=== PATIENT | female | born 1960 | race Caucasian/White ===

== ENCOUNTER 2018-10-13 11:18 | Emergency (ER) | payer MEDICAID, SELFPAY ==
--- NOTE | 2018-10-13 11:26 | NUR.NOTE ---
1125: went to get patient. not in waiting area.
[2018-10-13 11:28] VITALS: BP 144/86; PULSE 91; RESP 14; TEMP 37.1; O2SAT 97
--- NOTE | 2018-10-13 12:01 | ED.GENADUL_ITS ---
Discharge Plan Disposition Patient Disposition: HOME Discharge Details Chief Complaint: FacialProb Clinical Impression: Acute facial pain Primary Care Provider: Dafne Vidal ED Provider: José Weiss Home Meds and New Rx's Prescriptions: Continued losartan 50 mg Tablet 1 tab PO QAM RF: 0 Discharge Instructions Additional Instructions: Keep affected area warm and protected from cold environment. Please take ibuprofen over the counter - dose according to label. Please take Tylenol over the counter - dose according to label. Please contact your primary care physician to arrange follow-up. Return to the ER for any worsening or new concerning symptoms. Referrals: Dafne Vidal [Primary Care Provider] - Discharge Data Discharge Date/Time-TO BE ENTERED AT DEPARTURE: 10/13/18 12:19 Medical Decision Making 58yo f here with pain and swelling right nasal bridge. She has mild tenderness on exam with no significant erythema or swelling. Patient notes swelling has dramatically improved from yesterday. Consider frostbite versus less likely infectious or allergic process. Given symptoms are improving I do not think antibiotics are indicated at this time. Patient is a chronic smoker. I did advise that should symptoms worsen she will need additional diagnostic testing. I encouraged to return should she have any worsening or new concerning symptoms and advised that she follow-up with her primary care physician and be sure to discuss this as scheduled later next week. HPI General Date/Time Provider Initiated Documentation: 10/13/18 11:42 . Related Data Home Medications Medication Instructions Recorded Confirmed losartan 1 tab PO QAM 10/13/18 10/13/18 Allergies Allergy/AdvReac Type Severity Reaction Status Date / Time erythromycin base AdvReac Intermediate swelling Unverified 10/13/18 11:34 hands and feet Penicillins AdvReac Intermediate swelling Unverified 10/13/18 11:34 in hands and feet General Stated Complaint: FacialProb JORGE: 3 PFSH Social History Smoking/Tobacco Use Status: Current every day Exam Const General: cooperative and no acute distress HENNE Head: normocephalic and atraumatic General nose exam: external nose normal and nares normal Face and sinus: sinuses nontender and other (mild swelling bridge of nose and right paranasal with no erythema ) Mouth: oral mucosae normal and moist mucous membranes Throat: posterior oropharynx normal Eyes Conjunctivae: normal conjunctivae Sclera: normal sclerae EOM: EOM intact bilaterally Skin General skin exam: no rashes or lesions noted Other: no erythema or blister on face Neuro General: alert and awake Course Vital Signs Temperature 37.1 C 10/13/18 11:28 Pulse 91 H 10/13/18 11:28 Respiratory Rate 14 10/13/18 11:28 Blood Pressure 144/86 H 10/13/18 11:28 Pulse Oximetry 97 10/13/18 11:28 Temperature 37.1 C 10/13/18 11:28 Temperature Source Skin 10/13/18 11:28 Pulse 91 H 10/13/18 11:28 Respiratory Rate 14 10/13/18 11:28 Respiratory Effort 10/13/18 11:35 Blood Pressure 144/86 H 10/13/18 11:28 Blood Pressure Position Sitting 10/13/18 11:28 Pulse Oximetry 97 10/13/18 11:28 Oxygen Delivery Method Room Air 10/13/18 11:28 Oxygen Flow Rate 0 10/13/18 11:28 Pain Level 4 10/13/18 11:28 Comment 10/13/18 11:28
== END 2018-10-13 12:19 | disposition home or self-care (01) ==
PROVIDERS: Emergency Provider Student in an Organized Health Care Education/Training Program; PCP Nurse Practitioner Family
DX: R51 Headache (principal); R22.0 Localized swelling, mass and lump, head
CPT/HCPCS: 99282

== ENCOUNTER 2018-10-30 01:02 | Outpatient (CLI) | payer MEDICAID, SELFPAY ==
--- NOTE | 2018-10-30 08:10 | DI.MAMMO_ITS ---
SYMPTOM/DIAGNOSIS: SCREENING, Z12.39 MAMMOGRAMS: Mammograms were interpreted according to the usual protocol including computer analysis with CAD system, tomosynthesis and C view imaging. The patient states previous exam in [place] which was not able to be located. The breasts are composed of heterogeneously dense fibroglandular tissue, breast density, Category C. No suspicious masses or suspicious microcalcifications are seen. IMPRESSION: Category 1, negative mammogram. Yearly screening mammography is recommended. If the patient's previous exams become available, an addendum will be issued. [facility] ASSESSMENT OF FINDINGS: Negative. Category 1. Patient will receive a letter notifying them of these results. Bi-RADS category C. The breasts are heterogeneously dense, which may obscure small masses.
[2018-10-30 12:51] LABS: Anion Gap 7.4 mmol/L (3-11); BUN 12 mg/dL (7-18); CO2 30.6 mmol/L (21.0-32.0); CREATININE 0.65 mg/dL (0.55-1.02); Calcium 9.3 mg/dL (8.5-10.1); Chloride 105 mmol/L (98-107); Cholesterol 221 mg/dL (50-200); Glucose 103 mg/dL (70-100); HDL Cholesterol 57 mg/dL (40-60); LDL CHOLESTEROL 136 mg/dL (<100); Potassium 4.1 mmol/L (3.5-5.1); Sodium 143 mmol/L (136-145); Triglyceride 125 mg/dL (30-150)
== END 2018-10-30 01:22 ==
PROVIDERS: PCP Nurse Practitioner Family; Visit Provider Nurse Practitioner Family
DX: Z12.31 Encounter for screening mammogram for malignant neoplasm of breast (principal); I10 Essential (primary) hypertension; Z00.00 Encounter for general adult medical examination without abnormal findings
CPT/HCPCS: 77063; 77067; 80048; 80061; 83721

== ENCOUNTER 2018-11-13 10:54 | Outpatient (REF) | payer MEDICAID, SELFPAY ==
--- NOTE | 2018-11-13 09:45 | PAPFT_PTH ---
PATIENT: Lina Coffey LOC: [facility] U#:[id number] AGE/SX: 58/F ROOM: RE11/13/[address]: Dafne Vidal : 1960 BED: DIS: 11/13/2018 SPEC #: [id number] RECD: 11/13/18 12:42 STATUS: MORENA RENancy #: [id number] GIOVANNY: 11/13/18 09:[address]: Dafne Vidal DEPT: [facility] Cytology RECD BY: Janiya Diallo Tissues: 1 - CX/ENDOCX FOR PAP SMEARS Procedures: PAP THIN PREP/UVM Screening HPV DNA PROBE Comments: [id number]
== END 2018-11-13 11:14 ==
LOC: NCHCN 10:54
PROVIDERS: PCP Nurse Practitioner Family; Visit Provider Nurse Practitioner Family
DX: Z12.4 Encounter for screening for malignant neoplasm of cervix (principal); Z11.51 Encounter for screening for human papillomavirus (HPV); Z00.00 Encounter for general adult medical examination without abnormal findings
CPT/HCPCS: 88142; 87624

== ENCOUNTER 2019-05-08 07:43 | Emergency (ER) | payer MEDICAID, SELFPAY ==
[2019-05-08 07:50] VITALS: BP 157/92; PULSE 93; RESP 16; TEMP 36.6; O2SAT 98
--- NOTE | 2019-05-08 08:07 | ED.GENADUL_ITS ---
Discharge Plan Disposition Patient Disposition: HOME Condition: Stable Discharge Details Chief Complaint: DentalOral Clinical Impression: Pain, dental, Ear pain, right Primary Care Provider: Dafne Vidal ED Provider: Benita Sheppard Home Meds and New Rx's Prescriptions: New clindamycin HCl 150 mg capsule 450 mg PO TID 7 Days Qty: 63 RF: 0 Continued losartan 50 mg Tablet 1 tab PO QAM RF: 0 Discharge Instructions Instructions: Earache (ED), Toothache (ED) Additional Instructions: Take the antibiotics until finished. Alternate Tylenol and Motrin as needed and directed for pain. Take your Percocet that you have at home as needed and directed for pain not relieved with Tylenol or motrin. Call your dentist today to schedule a follow-up appointment for reevaluation. Return to the emergency department if you develop any worsening or new concerning symptoms. Discharge Data Discharge Date/Time-TO BE ENTERED AT DEPARTURE: 05/08/19 08:35 Discharge Physician: Benita Sheppard Medical Decision Making 59-year-old female who presents to the ED with complaint of right lower dental pain, right ear pain and sore throat for the past month. She appears nontoxic. Afebrile. Right lower tooth tender to palpation without evidence of abscess. Throat normal to inspection. No drooling, trismus, or evidence of peritonsillar abscess. Patient is allergic to penicillin. Will treat with clindamycin. Patient advised to call her dentist tomorrow morning to schedule a follow-up appointment for reevaluation and to return to the ER anytime if worse. HPI General Mode of arrival: ambulatory . Date/Time Provider Initiated Documentation: 05/08/19 07:59 . Limitations to Documentation: no limitations . Information obtained by: patient . HPI Narrative: Patient is a 59-year-old female who presents with right lower dental pain, ear pain and right-sided sore throat for the past month, worse since last night. She states she has a hole near a feeling in her right lower tooth. She states she took 2 Percocet that she had leftover from a previous prescription overnight without relief. She denies any fever, difficulty swallowing, difficulty breathing, headache or neck pain. She denies any recent antibiotics. Related Data Home Medications Medication Instructions Recorded Confirmed losartan 1 tab PO QAM 10/13/18 10/13/18 clindamycin HCl 450 mg PO TID 7 Days #63 cap 05/08/19 Previous Rx's Medication Instructions Recorded clindamycin HCl 450 mg PO TID 7 Days #63 cap 05/08/19 Allergies Allergy/AdvReac Type Severity Reaction Status Date / Time erythromycin base AdvReac Intermediate swelling Unverified 10/13/18 11:34 hands and feet Penicillins AdvReac Intermediate swelling Unverified 10/13/18 11:34 in hands and feet General Stated Complaint: DentalOral JORGE: 4 Review of Systems Review of Systems All systems reviewed & are unremarkable except as noted in HPI and below Constitutional Reports as per HPI, Denies chills and Denies fever(s) Eyes Denies blurry vision ENT Reports dental pain, Denies dizziness, Reports otalgia, Reports sore throat and Denies throat swelling Cardiovascular Denies chest pain and Denies dyspnea Respiratory Denies cough and Denies dyspnea Gastrointestinal Denies abdominal pain, Denies diarrhea and Denies vomiting Genitourinary Denies hematuria and Denies dysuria Musculoskeletal Denies back pain and Denies numbness Integumentary/Breasts Denies lesions and Denies rash Neurologic Denies dizziness, Denies focal weakness and Denies numbness Allergic/Immunologic Denies throat swelling [facility] Medical History HTN (hypertension) (Chronic) Surgical History History of knee replacement (Chronic) Social History Smoking/Tobacco Use Status: Current every day Tobacco Type: cigarettes Smoking cigarettes per day: 10 Alcohol Intake: never Substance use type: does not use Do you feel safe in your relationship?: Yes Exam Const General: cooperative, healthy appearing and no acute distress HENCT Head: normal to inspection Ears: hearing grossly normal bilaterally, external ears normal and TM abnormal erythematous on the right General nose exam: external nose normal and nares normal Face and sinus: normal facial exam Mouth: oral mucosae normal Teeth image: 1. Tenderness to palpation R lower tooth w/ filling present. Hole noted to buccal side of tooth. Minimal surrounding erythema but no evidence of edema, fluctuance, induration or abscess. Throat: posterior oropharynx normal Eyes General: appearance normal, both eyes and all related structures Neck Neck: normal visual inspection, no lymphadenopathy, no meningeal signs, trachea midline and supple Resp Effort & Inspection: normal respiratory effort and able to speak in complete sentences Cardio Rate: regular rate Skin General skin exam: no rashes or lesions noted Neuro General: alert, awake and oriented x3 Motor: muscle tone normal throughout Extrem General: normal to inspection and full ROM Psych Appearance: grossly normal Affect: normal affect Course Vital Signs Temperature 97.9 F 05/08/19 07:50 Pulse 93 H 05/08/19 07:50 Respiratory Rate 16 05/08/19 07:50 Blood Pressure 157/92 H 05/08/19 07:50 Pulse Oximetry 98 05/08/19 07:50 Temperature 97.9 F 05/08/19 07:50 Temperature Source Skin 05/08/19 07:50 Pulse 93 H 05/08/19 07:50 Respiratory Rate 16 05/08/19 07:50 Respiratory Effort Non-Labored 05/08/19 07:53 Blood Pressure 157/92 H 05/08/19 07:50 Pulse Oximetry 98 05/08/19 07:50 Oxygen Delivery Method Room Air 05/08/19 07:50 Oxygen Flow Rate 0 05/08/19 07:50
== END 2019-05-08 08:35 | disposition home or self-care (01) ==
LOC: ER 08:43
PROVIDERS: Emergency Provider Physician Assistant; PCP Nurse Practitioner Family
DX: H92.01 Otalgia, right ear (principal); K08.89 Other specified disorders of teeth and supporting structures; J02.9 Acute pharyngitis, unspecified; I10 Essential (primary) hypertension
CPT/HCPCS: 99283

== ENCOUNTER 2019-05-26 08:58 | Emergency (ER) | payer MEDICAID, SELFPAY ==
--- NOTE | 2019-05-26 09:03 | W.ED.GENAD ---
Discharge Plan Disposition Patient Disposition: HOME Discharge Details Chief Complaint: EarProblem Clinical Impression: Eustachian tube dysfunction Primary Care Provider: Dafne Vidal ED Provider: Asif Billy Home Meds and New Rx's Prescriptions: Continued losartan 50 mg Tablet 1 tab PO QAM RF: 0 Discharge Instructions Additional Instructions: You were seen in the emergency department today for evaluation of ear pain. You should follow-up with your primary care doctor. Call tomorrow to schedule an appointment. Return to the emergency department immediately if you develop any fevers, weakness, difficulty breathing, or for any other concerning or worsening symptoms at all. Referrals: Dafne Vidal [Primary Care Provider] - Medical Decision Making 59-year-old female presents with right ear pain. There is no evidence of otitis media, otitis externa, mastoiditis. This is possibly due to eustachian tube dysfunction due to allergies. Patient will take ibuprofen and Tylenol. She will follow-up with her primary care provider. She was given return precautions, discharge instructions and agrees to the outpatient treatment plan. HPI My ear hurts. This patient is a 59-year-old female who presents with right ear pain. It is a sharp pain. Is been present for about 1 day. Nothing has really made it better or worse. She denies any fevers. She does have allergies. She takes allergy medication daily. About 1 week ago she was put on clindamycin for dental pain and right ear pain. She states that the tooth is no longer hurting. Symptoms do not radiate. Symptoms have been constant. She denies any other recent illness. General Date/Time Provider Initiated Documentation: 05/26/19 09:03. Related Data Home Medications Medication Instructions Recorded Confirmed losartan 1 tab PO QAM 10/13/18 05/26/19 Allergies Allergy/AdvReac Type Severity Reaction Status Date / Time erythromycin base AdvReac Intermediate swelling Unverified 05/26/19 09:07 hands and feet Penicillins AdvReac Intermediate swelling Unverified 05/26/19 09:07 in hands and feet General JORGE: 4 Review of Systems Review of Systems No fevers, chest pain, cough, vomiting. [facility] Medical History HTN (hypertension) (Chronic) Surgical History History of knee replacement (Chronic) Social History Smoking/Tobacco Use Status: Current every day Tobacco Type: cigarettes Alcohol Intake: never Substance use type: does not use Do you feel safe in your relationship?: Yes Exam Narrative Exam Narrative: Gen: no acute distress, alert. Eyes: Pupils equal, reactive to light, EOMs intact. ENT: nose and ears normal, posterior pharynx without injection or swelling. TMs are clear without erythema or injection or fluid. no ear swelling or evidence of mastoid tenderness. Neck: normal ROM. Lung: Clear to auscultation bilaterally, no respiratory distress. Card: RRR, normal S1, S2, no M/R/G. Psych: alert and oriented to person, place time, normal affect. Skin: warm, intact.
[2019-05-26 09:06] VITALS: BP 167/86; PULSE 96; RESP 16; TEMP 36.5; O2SAT 100
== END 2019-05-26 09:42 | disposition home or self-care (01) ==
PROVIDERS: Emergency Provider Emergency Medicine; PCP Nurse Practitioner Family
DX: H69.91 Unspecified Eustachian tube disorder, right ear (principal); I10 Essential (primary) hypertension
CPT/HCPCS: 99282

== ENCOUNTER 2019-09-14 09:19 | Emergency (ER) | payer MEDICAID, SELFPAY ==
[2019-09-14 09:25] VITALS: BP 185/105; PULSE 100; RESP 18; TEMP 36.6; O2SAT 98
[2019-09-14] MEDS: Ibuprofen 600 MG TAB PO (09:44)
[2019-09-14] MEDS: Acetaminophen 325 MG TAB 650 MG PO (09:45)
--- NOTE | 2019-09-14 09:54 | DI.RAD_ITS ---
EXAM: XR FOREARM RT and XR right elbow INDICATION: fall, pain. COMPARISON: No previous for comparison. TECHNIQUE: 2D digital imaging was performed. FINDINGS: There is a mildly impacted fracture of the radial neck. No other fracture or dislocation is seen in the right elbow and forearm. There is a joint effusion present. IMPRESSION: Mildly impacted right radial neck fracture.
--- NOTE | 2019-09-14 10:15 | DI.VRAD_ITS ---
Addendum created by Can Hector MD on 09/14/2019 10:20:26 AM EST THIS REPORT CONTAINS FINDINGS THAT MAY BE CRITICAL TO PATIENT CARE. The findings were verbally communicated via telephone conference with BRIAN MIRANDA at 10:20 AM EST on 09/14/2019. The findings were acknowledged and understood. Addendum created by Can Hector MD on 09/14/2019 10:16:50 AM EST Correction: There is impacted minimally displaced radial head fracture better seen on the elbow images Initial report created on 09/14/2019 10:15:04 AM EST PROCEDURE INFORMATION: Exam: XR Right Forearm Exam date and time: 09/14/2019 9:40 AM Age: 59 years old Clinical indication: Pain; Elbow; Right TECHNIQUE: Imaging protocol: XR Right forearm. Views: 2 views. COMPARISON: No relevant prior studies available. FINDINGS: Bones/joints: Degenerative changes in the humeral ulnar joint. There is no evidence of acute fracture.There is no evidence of malalignment or dislocation. Soft tissues: Normal. IMPRESSION: There is no evidence of acute fracture.There is no evidence of malalignment or dislocation. Dictated and Authenticated by: Can Hector MD. Ordering:PAUL Kumar MD
--- NOTE | 2019-09-14 10:17 | DI.VRAD_ITS ---
Addendum created by Can Hector MD on 09/14/2019 10:20:10 AM EST THIS REPORT CONTAINS FINDINGS THAT MAY BE CRITICAL TO PATIENT CARE. The findings were verbally communicated via telephone conference with BRIAN MIRANDA at 10:20 AM EST on 09/14/2019. The findings were acknowledged and understood. Initial report created on 09/14/2019 10:17:10 AM EST PROCEDURE INFORMATION: Exam: XR Right Elbow Exam date and time: 09/14/2019 10:03 AM Age: 59 years old Clinical indication: Injury or trauma; Fall; Initial encounter; Blunt trauma (contusions or hematomas; Elbow; Right; Additional info: Best oblique images possible, done supine for patient comfort. Patient intolerant to positioning TECHNIQUE: Imaging protocol: XR Right elbow. Views: 3 or more views. COMPARISON: No relevant prior studies available. FINDINGS: Bones/joints: Minimally displaced Impacted radial head fracture. Degenerative changes in the humeral ulnar joint Osteophyte formation in the medial condyle Soft tissues: Soft tissue swelling of the elbow IMPRESSION: Minimally displaced Impacted radial head fracture. Dictated and Authenticated by: Can Hector MD. Ordering:PAUL Kumar MD
--- NOTE | 2019-09-14 10:28 | W.ED.GENAD ---
Discharge Plan Disposition Patient Disposition: HOME Discharge Details Chief Complaint: Orthopedic Clinical Impression: Closed fracture of head of right radius Primary Care Provider: Dafne Vidal ED Provider: José Weiss Home Meds and New Rx's Prescriptions: New ibuprofen 600 mg tablet 600 mg PO TID Qty: 60 RF: 0 Continued losartan 50 mg Tablet 1 tab PO QAM RF: 0 Discharge Instructions Instructions: Arm Fracture in Adults (ED) Additional Instructions: Please use sling. Please take ibuprofen as prescribed. Please take acetaminophen (tylenol) - 650mg every 6 hours by mouth as needed for pain. Please follow-up with orthopedics. Call on Monday to schedule an appointment. Return to the ER for any new concerning or worsening symptoms. Your blood pressure was elevated today. Be sure to follow-up with your primary care physician and have this rechecked. You may need to have your antihypertensive medication dosing adjusted. Referrals: [facility] [Provider Group] Sundeep Tao MD [ [facility] STAFF PHYSICIAN] - Discharge Data Discharge Date/Time-TO BE ENTERED AT DEPARTURE: 09/14/19 10:44 Medical Decision Making 59-year-old female tripped and fell and landed on right elbow, here with elbow pain and tenderness, unable to fully extend her elbow. Neurovascular intact distally. X-ray of the elbow was reviewed and interpreted by radiology: Minimally displaced impacted radial head fracture. I called and spoke with Dr. Tao who recommends sling versus splint. He will see the patient in follow-up 1 week. Usual and customary discharge instructions were provided. HPI General Date/Time Provider Initiated Documentation: 09/14/19 09:32. Related Data Home Medications Medication Instructions Recorded Confirmed losartan 1 tab PO QAM 10/13/18 09/14/19 ibuprofen 600 mg PO TID #60 tab 09/14/19 Previous Rx's Medication Instructions Recorded ibuprofen 600 mg PO TID #60 tab 09/14/19 Allergies Allergy/AdvReac Type Severity Reaction Status Date / Time erythromycin base AdvReac Intermediate swelling Unverified 09/14/19 09:27 hands and feet Penicillins AdvReac Intermediate swelling Unverified 09/14/19 09:27 in hands and feet General Stated Complaint: Orthopedic JORGE: 4 PFSH Social History Smoking/Tobacco Use Status: Current every day Tobacco Type: cigarettes Alcohol Intake: never Substance use type: does not use Do you feel safe at home: Yes Do you feel safe in your relationship?: Yes Exam Const General: cooperative and no acute distress [facility] Head: normocephalic and atraumatic Neck Neck: full ROM and supple Resp Auscultation: clear to auscultation bilaterally, no rales, no rhonchi and no wheezes Cardio Jugular venous pressure: no JVD Rate: regular rate and not tachycardic Rhythm: regular rhythm GI Palpation: soft, not firm, no guarding, no masses, not rigid and nontender Back/Spine/Pelvis Cervical Spine: cervical ROM normal and No cervical spinal tenderness Skin General skin exam: no rashes or lesions noted Neuro General: alert, awake, oriented x3 and tone normal Extrem Right upper extremity: elbow/forearm Details: tenderness Location: of the radial head, abnormal ROM (unable to extend elbow fully) and distal pulses intact; no penetrating wound Psych Appearance: grossly normal Mental Status: mental status grossly normal Course Vital Signs Vital signs: Vital Signs Temperature 36.6 C 09/14/19 09:25 Pulse 100 H 09/14/19 09:25 Respiratory Rate 18 09/14/19 09:25 Blood Pressure 185/105 H 09/14/19 09:25 Pulse Oximetry 98 09/14/19 09:25 Temperature 36.6 C 09/14/19 09:25 Pulse 100 H 09/14/19 09:25 Respiratory Rate 18 09/14/19 09:25 Respiratory Effort 09/14/19 09:28 Blood Pressure 185/105 H 09/14/19 09:25 Pulse Oximetry 98 09/14/19 09:25 Oxygen Delivery Method Room Air 09/14/19 09:25 Oxygen Flow Rate 0 09/14/19 09:25 Pain Level 6 09/14/19 09:28
== END 2019-09-14 10:44 | disposition home or self-care (01) ==
PROVIDERS: Emergency Provider Student in an Organized Health Care Education/Training Program; PCP Nurse Practitioner Family
DX: S52.121A Displaced fracture of head of right radius, initial encounter for closed fracture (principal); M25.531 Pain in right wrist; W00.0XXA Fall on same level due to ice and snow, initial encounter
CPT/HCPCS: 24650; 73080; 73090; L3650

== ENCOUNTER 2021-01-11 01:30 | Outpatient (CLI) | payer MEDICAID, SELFPAY ==
--- NOTE | 2021-01-11 | DI.MAMMO_ITS ---
EXAM: MG MAMMO SCREENING CLINICAL HISTORY: SCREENING,Z12.31. TECHNIQUE: Bilateral full field digital CC and MLO mammographic images were obtained with 3D tomosyn thesis and utilizing computer aided detection (CAD). COMPARISON: Prior mammogram of October 2018 FINDINGS: The fibroglandular tissue is again noted be moderately dense, this decreasing sensitivity mammogram f or finding hidden underlying lesions. There are no new obvious spiculated masses nor malignant appearing microcalcification groups. There is no significant architectural distortion nor skin thickening-retraction. IMPRESSION: Dense bilateral fibroglandular tissue. No obvious radiographic evidence of malignancy. BI-RADS Category 1 - Negative Breast Density - Category C - Heterogeneously dense Breast density Category C or D implies that the patient has dense breast tissue. Dense breast tissue can make it harder to find cancer on a mammogram. Dense breast tissue is also associated with an incr eased risk of breast cancer. This information about the result of the mammogram report was provided to the patient to raise their awareness. Use this report when you speak with the patient about their risks for breast cancer, which includes their family history. At that time, you may recommend additional screening tests (Ultrasoun d or MRI) as these tests may add significant information. A negative radiographic report should not delay biopsy if a dominant or clinically suspicious mass is present. Up to ten percent of cancers are not identified on mammography. A negative report may reinforce clinical impression. Adenosis and dense breasts may obscure an underlying neoplasm. False positive reports average 6 to 10%. Patient will receive a letter notifying them of these results.
== END 2021-01-11 01:50 ==
PROVIDERS: PCP Nurse Practitioner Family; Visit Provider Nurse Practitioner Family
DX: Z12.31 Encounter for screening mammogram for malignant neoplasm of breast (principal)
CPT/HCPCS: 77063; 77067

== ENCOUNTER 2021-01-25 11:01 | Outpatient (REF) | payer MEDICAID, SELFPAY ==
[2021-01-25 15:43] LABS: Abs Immature Grans 0.02 10^3/uL (0.0-0.06); Absolute Basophil Count 0.03 10^3/uL (0.0-0.2); Absolute Lymphocyte Count 1.77 10^3/uL (1.2-3.4); Absolute Monocyte Count 0.44 10^3/uL (0.1-0.8); Absolute Neutrophil Count 3.69 10^3/uL (1.2-6.7); Basophils % 0.5; Eosinophils % 4.8; HCT 38.7 % (36.0-46.0); HGB 12.7 g/dL (11.2-15.7); Immature Grans % 0.3; Lymphocytes % 28.3; MCH 29.9 pg (27.0-33.0); MCHC 32.8 % (32.0-36.0); MCV 91.1 fL (80-95); MPV 12.2 fL (8.0-11.0); Neutrophils % 59.1; Nucleated RBC 0 %; Platelet Count 205 10^3/uL (130-400); RBC 4.25 10^6/uL (3.93-5.22); RDW 12.5 % (11.7-14.6); RDW-SD 41.6 fL; WBC 6.25 10^3/uL (4.4-10.8)
== END 2021-01-25 11:02 | disposition home or self-care (01) ==
LOC: NCHCN 11:01
PROVIDERS: PCP Nurse Practitioner Family; Visit Provider Nurse Practitioner Family
DX: R53.83 Other fatigue (principal)
CPT/HCPCS: 85025

== ENCOUNTER 2021-09-20 16:26 | Outpatient (REF) | payer MEDICAID, SELFPAY ==
[2021-09-20 14:22] LABS: Hemoglobin A1C 6.9 % (<5.7)
[2021-09-20 14:49] LABS: Anion Gap 10.9 mmol/L (3-11); BUN 12 mg/dL (7-18); CO2 27.1 mmol/L (21.0-32.0); CREATININE 0.6 mg/dL (0.55-1.02); Calcium 9.1 mg/dL (8.5-10.1); Calculated LDL 136 mg/dL (<100); Chloride 105 mmol/L (98-107); Cholesterol 209 mg/dL (<200); Glucose 114 mg/dL (74-106); HDL Cholesterol 49 mg/dL (40-60); Potassium 4.1 mmol/L (3.5-5.1); Sodium 143 mmol/L (136-145); Triglyceride 123 mg/dL (<150)
== END 2021-09-20 16:27 | disposition home or self-care (01) ==
LOC: NCHCN 16:26
PROVIDERS: PCP Nurse Practitioner Family; Visit Provider Nurse Practitioner Family
DX: I10 Essential (primary) hypertension (principal); Z00.00 Encounter for general adult medical examination without abnormal findings
CPT/HCPCS: 80048; 80061; 83036

== ENCOUNTER 2021-09-22 15:56 | Outpatient (REF) | payer MEDICAID, SELFPAY ==
[2021-09-24 16:30] LABS: COVID-19 RT-PCR UVMMC Result Negative (Negative)
== END 2021-09-22 15:57 | disposition home or self-care (01) ==
LOC: NCHCN 15:56
PROVIDERS: PCP Nurse Practitioner Family; Visit Provider Nurse Practitioner Family
DX: Z20.822 Contact with and (suspected) exposure to COVID-19 (principal)
CPT/HCPCS: U0003

== ENCOUNTER 2022-03-07 13:52 | Outpatient (REF) | payer BC, SELFPAY ==
[2022-03-07 15:17] LABS: Abs Immature Grans 0.02 10^3/uL (0.0-0.06); Absolute Basophil Count 0.02 10^3/uL (0.0-0.2); Absolute Eosinophil Count 0.23 10^3/uL (0.0-0.7); Absolute Lymphocyte Count 1.45 10^3/uL (1.2-3.4); Basophils % 0.3; HCT 39.7 % (36.0-46.0); HGB 12.9 g/dL (11.2-15.7); Immature Grans % 0.3; Lymphocytes % 25.3; MCH 29.7 pg (27.0-33.0); MCHC 32.5 % (32.0-36.0); MCV 92 fL (80-95); MPV 11.7 fL (8.0-11.0); Neutrophils % 63.1; Platelet Count 216 10^3/uL (130-400); RBC 4.34 10^6/uL (3.93-5.22); RDW 12.8 % (11.7-14.6); RDW-SD 42.6 fL; WBC 5.72 10^3/uL (4.4-10.8)
[2022-03-07 15:25] LABS: ALT 27 U/L (14-59); AST 18 U/L (15-37); Albumin 4.1 g/dL (3.4-5.0); Alkaline Phosphatase 89 U/L (46-116); Anion Gap 10.3 mmol/L (3-11); BUN 16 mg/dL (7-18); Bilirubin, Total 0.4 mg/dL (0.2-1.0); CO2 26.7 mmol/L (21.0-32.0); CREATININE 0.6 mg/dL (0.55-1.02); Chloride 102 mmol/L (98-107); Glucose 112 mg/dL (74-106); Lipase 42 U/L (73-393); Potassium 4.1 mmol/L (3.5-5.1); Sodium 139 mmol/L (136-145); Total Protein 7.6 g/dL (6.4-8.2)
== END 2022-03-07 13:53 | disposition home or self-care (01) ==
LOC: LBN 13:52
PROVIDERS: PCP Nurse Practitioner Family; Visit Provider Family Medicine
DX: R10.9 Unspecified abdominal pain (principal)
CPT/HCPCS: 80053; 83690; 85025

== ENCOUNTER 2022-06-30 15:55 | Outpatient (REF) | payer OTHER, SELFPAY ==
[2022-06-30 14:55] LABS: HCT 37.3 % (36.0-46.0); HGB 12.5 g/dL (11.2-15.7); MCH 29.3 pg (27.0-33.0); MCHC 33.5 % (32.0-36.0); MCV 87 fL (80-95); MPV 11.4 fL (8.0-11.0); Platelet Count 233 10^3/uL (130-400); RBC 4.27 10^6/uL (3.93-5.22); RDW 12.4 % (11.7-14.6); RDW-SD 39.7 fL; WBC 5.53 10^3/uL (4.4-10.8)
[2022-06-30 16:01] LABS: Hemoglobin A1C 6.9 % (<5.7)
== END 2022-06-30 15:56 | disposition home or self-care (01) ==
LOC: NCHCN 15:55
PROVIDERS: PCP Nurse Practitioner Family; Visit Provider Nurse Practitioner Family
DX: E11.9 Type 2 diabetes mellitus without complications (principal); R53.83 Other fatigue
CPT/HCPCS: 85027; 83036

== ENCOUNTER 2022-11-30 18:22 | Outpatient (REF) | payer OTHER, SELFPAY ==
--- OUTSIDE RECORDS SUMMARY | 2022-11-30 18:25 | XMS_ITS ---
Author Name Damián Dan Address [address], [place] [id number] Organization [facility] Address [address], [place] [id number] Care Team Providers Care Shank Inspector Name Role Phone Damián Dan Unavailable [phone] PROBLEMS Type Condition ICD9-CM Code WTU31-EP Code Onset Dates Condition Status SNOMED Code Problem Calculus of gallbladder without cholecystitis without obstruction K80.20 Active Problem GERD without esophagitis K21.9 Active 029451848 Problem Cholelithiasis K80.20 Active 027418914 Problem Smoker F17.200 Active 14869070 ALLERGIES Substance Reaction Event Type Date Status Erythromycin Unknown Drug Allergy Mar, Active Doxycycline Unknown Drug Allergy Mar, Active Penicillin V Potassium Unknown Drug Allergy Mar, Active Ampicillin Unknown Drug Allergy Mar, Active ENCOUNTERS Encounter Location Date Diagnosis [facility] [address] [facility] [address] [place] [id number] Mar, [facility] [address] [facility] [address] [place] [id number] Mar, Biliary colic K80.50 [facility] [address] [id number] Mar, [facility] [address] [place], [place] [id number] Jul, GERD without esophagitis K21.9 [facility] [address] [place] [id number] Jun, Gastroesophageal reflux disease, unspecified whether esophagitis present K21.9 ; Calculus of gallbladder without cholecystitis without obstruction K80.20 and Encounter for screening for other viral diseases Z11.[address] [facility] [address] [facility] [address] [place], [place] [id number] May, Gastroesophageal reflux disease, esophagitis presence not specified K21.9 and Calculus of gallbladder without cholecystitis without obstruction K80.20 [facility] [address] [facility] [address] [place], [place] [id number] Jun, Dysfunction of both eustachian tubes H69.83 and Smoker F17.200 [facility] [address] [place], [place] [id number] Feb, IMMUNIZATIONS No Known Immunizations SOCIAL HISTORY Qualifiers Date Former Smoker REASON FOR REFERRAL FUNCTIONAL STATUS PLAN OF CARE VITAL SIGNS Height 5 ft 4 in in 2022-04-13 Height 5 ft 4 in in 2020-07-16 Height 5 ft 4 in in 2020-06-08 Height 5 ft 4 in in 2019-07-09 Weight 321.4 lbs 2022-04-13 Weight 290 lbs 2020-07-16 Weight 290 lbs 2020-06-08 Weight 280 lbs 2019-07-09 Temperature 97.5 degrees Fahrenheit Temperature 97.3 degrees Fahrenheit Heart Rate 95 /min 2022-04-13 Heart Rate 106 /min 2020-07-16 Heart Rate 118 /min 2020-06-08 Oximetry 95 2022-04-13 Oximetry 96 2020-07-16 Oximetry 98 2020-06-08 BMI 55.16 kg/m2 2022-04-13 BMI 49.77 kg/m2 2020-07-16 BMI 49.77 kg/m2 2020-06-08 BMI 48.06 kg/m2 2019-07-09 Blood pressure systolic 158 mm Hg Blood pressure diastolic 82 mm Hg 2022-03 MEDICATIONS Medication Instructions Dosage Frequency Start Date End Date Duration Status metformin hcl 500 mg Oral daily 1 tab 24h Not-Taki ng Cyclobenzaprine HCl 10 MG Orally Once a day as directed 24h Active Allergy 10 mg Orally 3 times daily 2 tablet Active Iron 325 (65 Fe) MG Orally Once a day 1 tablet 24h Not-Taki ng ProAir HFA Not-T aleshia ng Triamcinolone Acetonide 0.1 % Externally Twice a day as directed 12h Active Omeprazole 40 MG Orally Once a day 1 capsule 30 minutes before morning meal 24h Active Losartan Potassium 100 MG Orally Once a day 1 tablet 24h Active Ibuprofen 800 MG Orally Three times a day 1 tablet with food or milk as needed 8h Active Multi Vitamin - Orally Once a day 1 tablet 24h Active Valium 5 MG Orally prn 1 tablet as needed Not-Taki ng PROCEDURES Procedure Date Ordered Result Body Site EGD DIAGNOSTIC BRUSH WASH Jul 22, 2020 RESULTS Name Result Date Reference Range XR LUMBAR SPINE 2 OR 3 VIEW 2021-02-11 COVID 19 [facility] (PRE-OP AND OB), PCR 2020-07 REASON FOR VISIT [facility] - Cholelithiasis. Imaging being pushed., chart update, [facility]- EGD, [facility]- 4 week follow up, - CHOLELITHIASIS, ENT eustachian tube dysfunction, right db, [facility] Joint Visit. , [facility], New Patient, [facility] COLO Insurance Providers Health Insurance Type Health Plan Insurance Address Health Plan Insurance Phone Health Plan Insurance Name Health Plan Coverage Dates Member ID Patient Relationship to Subscriber Patient Address Patient Phone Patient Name Patient Date of Subscriber ID Subscriber Name Subscriber Date of Group No SELF PAY/NO INSURANCE SELF PAY/NO INSURANCE self Lina Coffey [id number] [employer]BA BLUE [address] [facility] [address] CBA BLUE self Lina Coffey [id number] [place] MED[place] [address] [facility] [id number] [place] self Lina Coffey [id number]
== END 2022-11-30 18:23 | disposition home or self-care (01) ==
LOC: NCHCN 18:22
PROVIDERS: PCP Nurse Practitioner Family; Visit Provider Physician Assistant Medical
DX: R30.0 Dysuria (principal)
CPT/HCPCS: 87086

== ENCOUNTER 2022-12-08 16:00 | Outpatient (REF) | payer OTHER, SELFPAY ==
[2022-12-08 19:59] LABS: Anion Gap 8.7 mmol/L (3-11); BUN 17 mg/dL (7-18); CO2 30.3 mmol/L (21.0-32.0); CREATININE 1.2 mg/dL (0.55-1.02); Calcium 9.5 mg/dL (8.5-10.1); Chloride 97 mmol/L (98-107); Estimated GFR 51.82 (mL/min/1.73m2); Glucose 160 mg/dL (74-106); Potassium 3.2 mmol/L (3.5-5.1); Sodium 136 mmol/L (136-145)
== END 2022-12-08 16:01 | disposition home or self-care (01) ==
LOC: NCHCN 16:00
PROVIDERS: PCP Nurse Practitioner Family; Visit Provider Nurse Practitioner Family
DX: I10 Essential (primary) hypertension (principal)
CPT/HCPCS: 80048

== ENCOUNTER 2023-01-30 11:53 | Outpatient (REF) | payer OTHER, SELFPAY ==
[2023-01-30 17:30] LABS: BUN 16 mg/dL (7-18); CREATININE 0.8 mg/dL (0.55-1.02); Calcium 9.5 mg/dL (8.5-10.1); Chloride 99 mmol/L (98-107); Estimated GFR 83.78 (mL/min/1.73m2); Glucose 177 mg/dL (74-106); Potassium 3.6 mmol/L (3.5-5.1); Sodium 133 mmol/L (136-145)
== END 2023-01-30 11:54 | disposition home or self-care (01) ==
LOC: NCHCN 11:53
PROVIDERS: PCP Nurse Practitioner Family; Visit Provider Nurse Practitioner Family
DX: E87.6 Hypokalemia (principal)
CPT/HCPCS: 80048

== ENCOUNTER 2023-06-23 16:21 | Outpatient (REF) | payer OTHER, SELFPAY ==
[2023-06-23 18:02] LABS: ALT 26 U/L (14-59); AST 16 U/L (15-37); Albumin 3.9 g/dL (3.4-5.0); Alkaline Phosphatase 78 U/L (46-116); Anion Gap 9.3 mmol/L (3-11); BUN 21 mg/dL (7-18); Bilirubin, Total 0.3 mg/dL (0.2-1.0); CO2 26.7 mmol/L (21.0-32.0); CREATININE 0.8 mg/dL (0.55-1.02); Calcium 9.3 mg/dL (8.5-10.1); Calculated LDL 149 mg/dL (<100); Chloride 100 mmol/L (98-107); Cholesterol 221 mg/dL (<200); Estimated GFR 83.78 (mL/min/1.73m2); Glucose 176 mg/dL (74-106); HDL Cholesterol 47 mg/dL (40-60); Magnesium 1.7 mg/dL (1.8-2.4); Potassium 3.5 mmol/L (3.5-5.1); Sodium 136 mmol/L (136-145); TSH (W/Ref FT4) 1.24 uIU/mL (0.36-3.74); Triglyceride 125 mg/dL (<150); Vitamin B12 427 pg/mL (193-986)
[2023-06-23 19:10] LABS: Hemoglobin A1C 6.9 % (<5.7)
== END 2023-06-23 16:22 | disposition home or self-care (01) ==
LOC: NCHCN 16:21
PROVIDERS: PCP Nurse Practitioner Family; Visit Provider Nurse Practitioner Family
DX: E11.9 Type 2 diabetes mellitus without complications (principal); I10 Essential (primary) hypertension; E78.5 Hyperlipidemia, unspecified
CPT/HCPCS: 80053; 80061; 82607; 83036; 83735; 84443

== ENCOUNTER 2023-11-16 13:03 | Outpatient (REF) | payer OTHER, SELFPAY ==
[2023-11-16 17:33] LABS: Hemoglobin A1C 7.1 % (<5.7)
== END 2023-11-16 13:04 | disposition home or self-care (01) ==
LOC: NCHCN 13:03
PROVIDERS: PCP Nurse Practitioner Family; Referring Provider Nurse Practitioner Family; Visit Provider Nurse Practitioner Family
DX: E11.9 Type 2 diabetes mellitus without complications (principal)
CPT/HCPCS: 83036

== ENCOUNTER 2024-05-31 15:21 | Outpatient (REF) | payer MEDICAID, SELFPAY ==
[2024-05-31 15:55] LABS: Hemoglobin A1C 6.7 % (<5.7)
[2024-05-31 16:03] LABS: ALT 26 U/L (14-59); AST 20 U/L (15-37); Albumin 4.1 g/dL (3.4-5.0); Alkaline Phosphatase 64 U/L (46-116); Anion Gap 10.6 mmol/L (3-11); BUN 20 mg/dL (7-18); Bilirubin, Total 0.38 mg/dL (0.2-1.0); CO2 29.4 mmol/L (21.0-32.0); CREATININE 0.8 mg/dL (0.55-1.02); Calcium 9.4 mg/dL (8.5-10.1); Chloride 100 mmol/L (98-107); Estimated GFR 83.26 (mL/min/1.73m2); Glucose 123 mg/dL (74-106); Magnesium 2.1 mg/dL (1.8-2.4); Potassium 3.8 mmol/L (3.5-5.1); Sodium 140 mmol/L (136-145); Total Protein 7.8 g/dL (6.4-8.2)
== END 2024-05-31 15:22 | disposition home or self-care (01) ==
LOC: NCHCN 15:21
PROVIDERS: Visit Provider Nurse Practitioner Family
DX: E11.9 Type 2 diabetes mellitus without complications (principal)
CPT/HCPCS: 80053; 83036; 83735